=== PATIENT | female | born 1940 | race Caucasian/White ===

== ENCOUNTER 2021-07-04 02:39 | Inpatient (IN) | payer MEDICARE, OTHER ==
[~2021-07-04] VITALS: Ht 152.4 cm; Wt 73.1 kg
--- NOTE | 2021-07-04 03:15 | NUR ---
pt rec'd via [facility] from a [facility], pt had mechical fall while attempting to transfer from bed. pt sustained a unwitnessed ground level fall, pt was able to use life alert like braclet to contact EMS. pt arrived without IV access, or supplemental oxigenatation, transfered from [facility] to [facility]. MD at bedside, EKG obtained and reviewed by MD, IV eatablished and blood collected, including blood cultures. pt placed on continuous pulse oximtry, intermittent blood pressure and cardiac monitoring.pt has brusing to right side of the face and a dime sized abrasion to the right great toe, no obvious deformity or dislocation. pt taken taken to XRay from imaging in stable condition and returned stable. pt is alert and oriented, speaking in full sentences on room air. pt denies any issues with continency, however pt arrived in diaper. pt denies getting dizzy and states emphatically that she "only tripped". per pt this is her third fall within the past 2 months. Pt is a poor historian
[2021-07-04 03:18] LABS: HEMATOCRIT 39.9 % (31.2-41.9); MEAN CORPUSCULAR HEMOGLOBIN 29.8 uug (24.7-32.8); MEAN CORPUSCULAR VOLUME 89.3 fL (75.5-95.3); PLATELET COUNT (AUTO) 287 K/uL (179-408)
[2021-07-04] MEDS ORDERED: TDAP DIPH,PERTUSS,TET VAC/PF 0.5 ML DISP.SYRIN IM ONE ×2 (03:30→04:45)
[2021-07-04 03:32] LABS: ETHANOL < 3 MG/DL (0-0)
[2021-07-04 03:39] LABS: CARBON DIOXIDE 32 mmol/L (21-32); CHLORIDE 101 mmol/L (98-107); CREATININE 1.4 mg/dL (0.6-1.3); POTASSIUM 4.2 mmol/L (3.5-5.1); UREA NITROGEN, BLOOD 34 mg/dL (7-18)
[2021-07-04 03:41] LABS: GLUCOSE 307 mg/dL (74-106)
[2021-07-04 03:42] LABS: THYROID STIMULATING HORMONE 3.584 mIU/mL (0.358-3.740)
[2021-07-04 03:43] LABS: ALANINE AMINOTRANSFERASE 20 U/L (14-59); ALKALINE PHOSPHATASE 87 U/L (50-136); ASPARTATE AMINOTRANSFERASE 12 U/L (15-37); BILIRUBIN,DIRECT 0.1 mg/dL (0.0-0.2); BILIRUBIN,TOTAL 0.4 mg/dL (0.2-1.0); TOTAL PROTEIN, SERUM 7.2 g/dL (6.4-8.2)
--- NOTE | 2021-07-04 06:27 | NUR ---
Called [facility] to page Dr. Hickey.
--- NOTE | 2021-07-04 06:32 | NUR ---
Dr. Alejo on panel call with Dr. Hickey.
[2021-07-04] MEDS ORDERED: MORPHINE SULFATE 2 MG/1 ML DISP.SYRIN IV PRN (06:45)
[2021-07-04] MEDS ORDERED: ONDANSETRON 4 MG/2 ML VIAL IV PRN (06:45)
[2021-07-04] MEDS ORDERED: INSULIN REGULAR, HUMAN 300 UNITS/3 ML VIAL SQ PRN (06:45)
[2021-07-04] MEDS ORDERED: hydrALAZINE HCL 20 MG/1 ML VIAL IV PRN (06:45)
[2021-07-04] MEDS ORDERED: DEXTROSE 50% 50 ML DISP.SYRIN IV PRN ×2 (06:45→13:00)
[2021-07-04] MEDS ORDERED: ACETAMINOPHEN 325 MG TABLET PO PRN (06:45)
[2021-07-04] MEDS: BLOOD SUGAR DIAGNOSTIC 1 EACH STRIP VI SCH ×4 (07:52→22:18)
[2021-07-04] MEDS: INSULIN REGULAR, HUMAN 300 UNIT/3 ML VIAL SQ PRN ×3 (08:06→22:20)
[2021-07-04] MEDS ORDERED: INSULIN REGULAR, HUMAN 300 UNIT/3 ML VIAL ONE (08:07)
--- NOTE | 2021-07-04 08:30 | NUR ---
Brekthais tray provided, ate w/ good appettite. pt denies pain at this time.
[2021-07-04] MEDS ORDERED: INSU100I19 SQ (11:25)
[2021-07-04] MEDS ORDERED: SPIR25TA6 PO (11:27)
[2021-07-04] MEDS ORDERED: EMPA25TA PO (11:27)
[2021-07-04] MEDS ORDERED: ASPI81TA31 PO (11:28)
[2021-07-04] MEDS ORDERED: CLOP75TA15 PO (11:29)
[2021-07-04] MEDS ORDERED: DULO60CA45 PO (11:30)
[2021-07-04] MEDS ORDERED: DEXL60CA3 PO (11:31)
[2021-07-04] MEDS ORDERED: LOSA100T31 PO (11:32)
[2021-07-04] MEDS ORDERED: FURO-151 PO (11:32)
[2021-07-04] MEDS ORDERED: LINA5TAB PO (11:33)
[2021-07-04] MEDS ORDERED: ATOR80TA PO (11:33)
[2021-07-04 11:34] LABS: *BILIRUBIN,URIN NEGATIVE (NEGATIVE); *CLARITY,URINE SLIGHTLY CLOUDY (CLEAR); *COLOR,URINE YELLOW (YELLOW); *KETONES,URINE NEGATIVE (NEGATIVE); *UROBILINOGEN,URINE 0.2 E.U./dl (NORMAL); LEUKOCYTE ESTERASE ,URINE TRACE (NEGATIVE); NITRITE, URINE NEGATIVE (NEGATIVE); UGLUCOSE 3+ (NEGATIVE)
[2021-07-04] MEDS ORDERED: EZET10TA15 PO (11:34)
[2021-07-04] MEDS ORDERED: GABA300C PO (11:35)
[2021-07-04] MEDS ORDERED: INSU100V11 SQ (11:36)
[2021-07-04 11:44] LABS: *BLOOD, URINE TRACE (NEGATIVE)
[2021-07-04 11:46] LABS: *AMPHETAMINE, URINE NEGATIVE (NEGATIVE); *CANNABINOID, URINE NEGATIVE (NEGATIVE); *COCCAINE, URINE NEGATIVE (NEGATIVE); *OPIATE, URINE NEGATIVE (NEGATIVE); *PHENCYCLIDINE SCREEN,URINE NEGATIVE (NEGATIVE)
[2021-07-04 11:54] LABS: RBC,URINE 0-3 /HPF (0-3); WBC,URINE TNTC /HPF (0-3)
[2021-07-04 11:56] LABS: SQUAMOUS EPITHELIAL CELL,UR FEW /HPF (NONE SEEN)
[2021-07-04] MEDS ORDERED: CEFTRIAXONE 1 G in IV DEXTROSE 5% 50 ML IV SCH (14:00)
[2021-07-04] MEDS ORDERED: CEFTRIAXONE /D5W 50ML IVPB **ER PYXIS IV ONE (14:33)
--- NOTE | 2021-07-04 14:43 | NUR ---
Patient is resting comfortably in bed with eyes closed, NAD noted at this time. Continue monitoring.
--- NOTE | 2021-07-04 15:30 | NUR ---
Saline lock on Rt Ac, noted to have small infiltrate. Removed and started a new line on Lt Fa angio #[id number].
[2021-07-04] MEDS ORDERED: BLOOD SUGAR DIAGNOSTIC 1 EACH STRIP VI SCH (16:30)
[2021-07-04] MEDS: GABAPENTIN 300 MG CAPSULE PO SCH (17:04)
[2021-07-04] MEDS ORDERED: GABAPENTIN 300 MG CAPSULE ONE (17:05)
--- NOTE | 2021-07-04 19:19 | NUR ---
pt assisted to ambulated to the bathroom, pt with steady gait. pt denies pain or sob. pt on 3 liters nc.
--- NOTE | 2021-07-04 19:39 | NUR ---
called to the domestic housekeeper she informs me there is a bed availalble on the third floor. I called to the third floor they state they do not know what nurse will receive the pt and to what room number. they state they will call me back.
[2021-07-04] MEDS ORDERED: hydrALAZINE HCL 20 MG/1 ML VIAL ONE (19:56)
--- NOTE | 2021-07-04 20:01 | NUR ---
spoke with Zhou camar[place] to go to room 316 RN will be Yissel.
--- NOTE | 2021-07-04 20:18 | NUR ---
report given to Jody DOSS.
--- NOTE | 2021-07-04 20:48 | NUR ---
pt transfered to room 317 via [facility]ney with all belongings. Nurse Jody RN at bedside to receive pt.
[2021-07-04] MEDS ORDERED: INSULIN GLARGINE,HUM 300 UNITS/3 ML CARTRIDGE SQ SCH (21:00)
[2021-07-04] MEDS ORDERED: ATORVASTATIN 20 MG TABLET PO SCH (21:00)
[2021-07-04] MEDS ORDERED: Medication Not On Formulary EA (Atorvastatin Calcium (Lipitor) 80 MG) PO SCH (21:00)
[2021-07-04] MEDS ORDERED: ATORVASTATIN 40 MG TABLET PO SCH (21:00)
[2021-07-04 21:52] VITALS: BP 152/48
[2021-07-05 04:41] VITALS: BP 158/57
[2021-07-05 06:03] LABS: HEMATOCRIT 38.5 % (31.2-41.9); MEAN CORPUSCULAR HEMOGLOBIN 29.4 uug (24.7-32.8); MEAN CORPUSCULAR VOLUME 90.5 fL (75.5-95.3); PLATELET COUNT (AUTO) 275 K/uL (179-408)
[2021-07-05] MEDS: BLOOD SUGAR DIAGNOSTIC 1 EACH STRIP VI SCH ×2 (06:19→11:35)
[2021-07-05 06:29] LABS: BILIRUBIN,TOTAL 0.6 mg/dL (0.2-1.0); CREATININE 1.2 mg/dL (0.6-1.3); MAGNESIUM 2.6 mg/dL (1.8-2.4); PHOSPHOROUS 3.8 mg/dL (2.5-4.9); POTASSIUM 5.3 mmol/L (3.5-5.1); TOTAL PROTEIN, SERUM 6.8 g/dL (6.4-8.2)
[2021-07-05] MEDS ORDERED: PANTOPRAZOLE SODIUM 40 MG TABLET.DR PO SCH (07:00)
[2021-07-05] MEDS: GABAPENTIN 300 MG CAPSULE PO SCH (08:12)
[2021-07-05] MEDS: INSULIN REGULAR, HUMAN 300 UNIT/3 ML VIAL SQ PRN ×3 (08:38→11:38)
[2021-07-05] MEDS ORDERED: LINAGLIPTIN 5 MG TABLET PO SCH (09:00)
[2021-07-05] MEDS ORDERED: AMLODIPINE 5 MG TABLET PO SCH (09:00)
[2021-07-05] MEDS ORDERED: CLOPIDOGREL 75 MG TABLET PO SCH (09:00)
[2021-07-05] MEDS ORDERED: INSULIN DETEMIR 300 UNIT/3 ML CARTRIDGE SQ SCH (09:00)
[2021-07-05] MEDS ORDERED: ASPIRIN 81 MG TAB.CHEW PO SCH (09:00)
[2021-07-05] MEDS ORDERED: EZETIMIBE 10 MG TABLET PO SCH (09:00)
[2021-07-05] MEDS ORDERED: DULOXETINE 60 MG CAPSULE.DR PO SCH (09:00)
[2021-07-05] MEDS ORDERED: Medication Not On Formulary EA (Empagliflozin (Jardiance) 25 MG) PO SCH (09:00)
--- NOTE | 2021-07-05 10:32 | NUR ---
Med. Surg: Regarding Jardiance: Per patient, she has nobody to bring her medication from home, no contact information on the face sheet, patient live alone, per doctor, patient is going to be discharge today, charge nurse informed pharmacy that the patient is getting discharge today at 1pm, continue to monitor for safety, continue with discharge process.
[2021-07-05 10:51] VITALS: BP 131/61
[2021-07-05 10:55] VITALS: BP 152/65
[2021-07-05 10:56] VITALS: BP 133/64
[2021-07-05 11:13] LABS: CREATININE 1.3 mg/dL (0.6-1.3)
[2021-07-05 11:49] VITALS: BP 157/59
[2021-07-05] MEDS ORDERED: NITR100C6 PO (14:21)
--- NOTE | 2021-07-05 14:38 | NUR ---
Med. Surg: Discharge Notes: Patient is awake and responding to her name, A/Ox4, cooperative with nursing care, following staff directions, discharge home with home health, transported home via ambulance, oxygen provided through [facility], contact lens technician Chidi arranged by window caser/inventory control planner, medication ordered through her preferred pharmacy - [facility] , instruction and discharge package given to patient, took all her belongings with her.
[2021-07-06] MEDS ORDERED: [UNRECOGNIZED DRUG - OTHER] PO SCH (09:00)
[2021-07-06] MEDS ORDERED: JARDIANCE 25 MG PO SCH (09:00)
== END 2021-07-05 14:38 | disposition home health service (06) | DRG 689 ==
LOC: ER 02:41 → TRANSITION 10:44 → MEDSURG3 20:20
PROVIDERS: ADMIT Registered Nurse; ATTEND Nurse Practitioner Family
DX: N39.0 Urinary tract infection, site not specified (principal); N17.0 Acute kidney failure with tubular necrosis; R29.6 Repeated falls; E66.01 Morbid (severe) obesity due to excess calories; E87.5 Hyperkalemia; K21.9 Gastro-esophageal reflux disease without esophagitis; R53.1 Weakness; W19.XXXA Unspecified fall, initial encounter; Y93.9 Activity, unspecified; Y92.000 Kitchen of unspecified non-institutional (private) residence as the place of occurrence of the external cause; I44.0 Atrioventricular block, first degree; I25.10 Atherosclerotic heart disease of native coronary artery without angina pectoris; I10 Essential (primary) hypertension; E11.40 Type 2 diabetes mellitus with diabetic neuropathy, unspecified; E83.9 Disorder of mineral metabolism, unspecified; S00.12XA Contusion of left eyelid and periocular area, initial encounter; Z95.5 Presence of coronary angioplasty implant and graft; Z79.4 Long term (current) use of insulin; Z68.31 Body mass index [BMI] 31.0-31.9, adult
CPT/HCPCS: 36415; 70450; 71045; 83605; 83735; 84100; 84443; 84484; 85025; 85730; 87040; 87086; 90715; 93005; 97161; G0378; G0480; J0360; J0696; J1815; J7060